=== PATIENT | female | born 1970 | race Caucasian/White ===

== ENCOUNTER 2020-09-10 14:23 | Outpatient (RCR) | payer MEDICARE, SELFPAY ==
[2020-09-10] MEDS: COVID-19 VACC, MRNA(PFIZER)/PF 30 MCG/0.3 ML SYRINGE IM (13:48)
[2020-10-01] MEDS: COVID-19 VACC, MRNA(PFIZER)/PF 30 MCG/0.3 ML SYRINGE IM (07:01)
== END 2020-09-10 23:59 ==
LOC: IMMUN 14:23
PROVIDERS: Visit Provider Family Medicine
DX: Z23 Encounter for immunization (principal)
CPT/HCPCS: 0001A; 0002A; 91300

== ENCOUNTER → 2021-05-19 09:49 | Outpatient (CLI) | payer OTHER, SELFPAY ==
[2021-05-19 12:20] LABS: Absolute Lymphocyte Count 1.99 X10^3/uL (0.83-4.51); Absolute Neutrophil Count 3.9 X10^3/uL (2.0-7.7); Basophil# 0.05 X10^3/uL; Basophil% 0.7 % (0-1); Eosinophil# 0.37 X10^3/uL; Eosinophils% 5.5 % (0-5); Hematocrit 41.6 % (37-47); Hemoglobin 13.6 g/dL (12.0-15.0); Lymphocyte # 1.99 X10^3/ul (0.83-4.51); Lymphocyte % 29.4 % (19-41); Mean Corp Hgb Conc 32.7 g/dL (32-36); Mean Corpuscular Hgb 29.1 pg (27.0-32.0); Mean Corpuscular Volume 89.1 fL (81-99); Mean Platelet Vol. 11.3 fl (6.2-12.0); Monocyte# 0.42 X10^3/uL; Monocyte% 6.2 % (0-10); NRBC Flagged by Analyzer 0 % (0-5); Neutrophil # 3.89 X10^3/uL (2.7-7.7); Neutrophil % 57.6 % (47-70); Platelet Count 386 K/mm3 (150-450); RBC Distribution Width CV 13.2 % (11.6-14.6); RBC Distribution Width SD 42.9 fl (35.1-43.9); Red Blood Count 4.67 M/mm3 (4.2-5.4); White Blood Count 6.8 K/mm3 (4.4-11.0)
[2021-05-19 12:46] LABS: ALB/GLOB Ratio 0.8 RATIO (0.9-2.4); AST(SGOT) 19 U/L (15-37); Alanine Aminotransfer ALT/SGPT 33 U/L (13-56); Albumin, Serum 3.6 g/dL (3.2-5.0); Alkaline Phosphatase 104 U/L (45-117); Anion Gap 10 (5-15); BUN 18 mg/dL (7-18); BUN/Creat Ratio 23.8 RATIO (10-20); Calcium,Total 8.9 mg/dL (8.5-10.1); Chloride 103 mmol/L (98-107); Cholesterol 252 mg/dL (200); Creatinine, Serum 0.76 mg/dL (0.55-1.02); EST Glomerular Filtration Rate 86 mL/min (>60); Est Glom Filt Rate - Afr Amer 104 mL/min (>60); Globulin 4.6 g/dL (2.2-4.2); Glucose 84 mg/dL (74-106); High Density Lipoprotein 47 mg/dL; Potassium 3.8 mmol/L (3.5-5.1); Protein, Total 8.2 g/dL (6.4-8.2); Sodium Level 138 mmol/L (136-145); T4 Free Direct 0.95 ng/dL (0.76-1.46); Thyroid Stim Hormone (TSH) 7.88 uIU/mL (0.358-3.74); Triglycerides 149 mg/dL; Very Low Density Lipoprotein 30 mg/dL (5-40)
[2021-05-19 12:57] LABS: Vitamin B12 517 pg/mL (211-911); Vitamin D,25 Hydroxy 21.2 ng/mL
[2021-05-29 03:07] LABS: Thyroid Stim Immunoglob <0.10 IU/L (0.00-0.55)
[2021-05-29 14:22] LABS: Anti-Thyroglobulin AB 2.3 IU/mL (0.0-0.9); Thyroglobulin RIA 17 ng/mL (.); Thyroid Peroxidase AB 286 IU/mL (0-34)
== END ==
PROVIDERS: PCP Family Medicine; Referring Provider Family Medicine; Visit Provider Family Medicine
DX: E78.5 Hyperlipidemia, unspecified (principal); E01.0 Iodine-deficiency related diffuse (endemic) goiter; E55.9 Vitamin D deficiency, unspecified; R53.83 Other fatigue
CPT/HCPCS: 36415; 80053; 80061; 82306; 82607; 84432; 84439; 84443; 84445; 85025; 86376; 86800

== ENCOUNTER 2021-08-27 10:10 | Outpatient (CLI) | payer BC, SELFPAY ==
[2021-08-27 11:10] LABS: Vitamin D,25 Hydroxy 43.8 ng/mL
[2021-08-27 11:18] LABS: T4 Free Direct 1.05 ng/dL (0.76-1.46); Thyroid Stim Hormone (TSH) 2.86 uIU/mL (0.358-3.74)
== END 2021-08-27 23:59 | disposition home or self-care (01) ==
LOC: MFPLAB 10:11
PROVIDERS: PCP Family Medicine; Visit Provider Family Medicine
DX: E06.3 Autoimmune thyroiditis (principal); E55.9 Vitamin D deficiency, unspecified
CPT/HCPCS: 36415; 82306; 84439; 84443

== ENCOUNTER → 2024-12-30 | Outpatient (CLI) | payer OTHER, SELFPAY ==
[2024-12-30 17:59] LABS: Vitamin D,25 Hydroxy 44.1 ng/mL (30-100)
[2024-12-31 07:43] LABS: T3 Total - Triiodothyronine 1.16 ng/mL (0.80-2.00)
== END | disposition home or self-care (01) ==
LOC: LAB.FUTURE 15:35 → LAB 15:39
PROVIDERS: PCP Family Medicine; Referring Provider Internal Medicine Endocrinology, Diabetes & Metabolism; Visit Provider Internal Medicine Endocrinology, Diabetes & Metabolism
DX: E06.3 Autoimmune thyroiditis (principal); E55.9 Vitamin D deficiency, unspecified
CPT/HCPCS: 36415; 82306; 84439; 84443; 84480

== ENCOUNTER → 2025-01-23 | Outpatient (CLI) | payer OTHER, SELFPAY ==
[2025-01-23 13:19] LABS: Follicle Stimulating Hormone 68.9 mIU/mL
== END | disposition home or self-care (01) ==
LOC: BWCLAB 11:50
PROVIDERS: PCP Family Medicine; Visit Provider Nurse Practitioner Family
DX: N95.0 Postmenopausal bleeding (principal)
CPT/HCPCS: 36415; 82670; 83001

== ENCOUNTER → 2025-02-03 | Outpatient (CLI) | payer OTHER, SELFPAY ==
--- NOTE | 2025-02-03 15:25 | US_ITS ---
PROCEDURE: PELVIC W/ TRANSVAGINAL REASON FOR EXAM: POST MENOPAUSAL BLEEDING TECHNIQUE: PELVIC W/ TRANSVAGINAL COMPARISON: None FINDINGS: Measurements: Uterus: 7.3 cm x 4.5 cm x 3.7 cm with a volume of 63.02 mL Endometrial Thickness: 5.8 mm. Endometrium is thickened. Right Ovary: 2 cm x 1.5 cm x 1.1 cm with a volume of 1.77 mL. Left Ovary: 1.1 cm x 1.4 cm x 0.8 cm with a volume of 0.62 mL. TRANSABDOMINAL: Uterus: Normal size, myometrial echotexture, and contour. Endometrium: Endometrium is thickened measuring 5.8 mm. Right ovary: Normal size and echotexture. Left ovary: Normal size and echotexture. Other: No large pelvic mass identified. Transvaginal sonography was performed to better visualize the endometrium. TRANSVAGINAL: Uterus: Retroverted. Endometrium: Endometrial thickening. Right ovary: Normal size and echotexture. Left ovary: Normal size and echotexture. Other adnexal findings: None. Cul-de-sac: No free intraperitoneal fluid identified. Tenderness: No tenderness US/Pelvic w/ Transvaginal IMPRESSION: Endometrial thickening for the postmenopausal state. Reading Location: [place] [id number]
--- NOTE | 2025-02-03 15:25 | US_ITS ---
PROCEDURE: PELVIC W/ TRANSVAGINAL REASON FOR EXAM: POST MENOPAUSAL BLEEDING TECHNIQUE: PELVIC W/ TRANSVAGINAL COMPARISON: None FINDINGS: Measurements: Uterus: 7.3 cm x 4.5 cm x 3.7 cm with a volume of 63.02 mL Endometrial Thickness: 5.8 mm. Endometrium is thickened. Right Ovary: 2 cm x 1.5 cm x 1.1 cm with a volume of 1.77 mL. Left Ovary: 1.1 cm x 1.4 cm x 0.8 cm with a volume of 0.62 mL. TRANSABDOMINAL: Uterus: Normal size, myometrial echotexture, and contour. Endometrium: Endometrium is thickened measuring 5.8 mm. Right ovary: Normal size and echotexture. Left ovary: Normal size and echotexture. Other: No large pelvic mass identified. Transvaginal sonography was performed to better visualize the endometrium. TRANSVAGINAL: Uterus: Retroverted. Endometrium: Endometrial thickening. Right ovary: Normal size and echotexture. Left ovary: Normal size and echotexture. Other adnexal findings: None. Cul-de-sac: No free intraperitoneal fluid identified. Tenderness: No tenderness US/Pelvic w/ Transvaginal IMPRESSION: Endometrial thickening for the postmenopausal state. Reading Location: [place] [id number]
== END | disposition home or self-care (01) ==
LOC: US 15:18
PROVIDERS: PCP Internal Medicine; Referring Provider Nurse Practitioner Family; Visit Provider Nurse Practitioner Family
DX: N95.0 Postmenopausal bleeding (principal)
CPT/HCPCS: 76830; 76856

== ENCOUNTER → 2025-02-27 | Outpatient (CLI) | payer OTHER, SELFPAY ==
--- NOTE | 2025-02-27 15:45 | EMB_PTH ---
PATIENT: JEREMIAS MARKS LOC: [facility] U#:[id number] AGE/SX: 54/F ROOM: RE02/27/[address]: Dr. Ruthann Augustin DO : 1970 BED: DIS: 02/27/2025 SPEC #: [id number] RECD: 02/27/25 16:38 STATUS: DANG OLEA #: [id number] GÓMEZ: 02/27/25 15:[address]: Ruthann Augustin DEPT: SURGICAL PATHOLOGY RECD BY: Darron Mata ENTERED: 02/28/25 11:31 SP TYPE: ENDOM BX/C DAMIAN DR: Dr. Yolanda Madrid MD Tissues: A - Endometrium, NOS Procedures: Surgery Specimen Level IV HEADER OPERATION: Endometrial biopsy PRE-OP DIAGNOSIS: Post menopausal bleeding TISSUE SUBMITTED: A- Endometrial lining MICROSCOPIC DIAGNOSIS A. Endometrium, biopsy: - Scant superficial endometrium - see note. Note: Scant tissue is present for evaluation. Clinical correlation is necessary to assess the adequacy of this sampling. MICROSCOPIC DESCRIPTION Slides are reviewed. GROSS DESCRIPTION A. Received in formalin labeled with the patient's name and date of are scant flecks of tissue floating within the container which are entirely submitted in 1 cassette for cellblock preparation. ID 02/28/2025 CPT:[id number]
== END | disposition home or self-care (01) ==
LOC: LABSPEC 16:29
PROVIDERS: PCP Internal Medicine; Visit Provider Obstetrics & Gynecology
DX: N95.0 Postmenopausal bleeding (principal)
CPT/HCPCS: 88305

== ENCOUNTER → 2025-04-18 | Outpatient (CLI) | payer OTHER, SELFPAY ==
[2025-04-18 07:24] LABS: Hematocrit 39.6 % (37-47); Hemoglobin 13.2 g/dL (12.0-15.0); Mean Corp Hgb Conc 33.3 g/dL (32-36); Mean Corpuscular Volume 87.8 fL (81-99); Mean Platelet Vol. 11.1 fl (6.2-12.0); Platelet Count 373 K/mm3 (150-450); RBC Distribution Width CV 13.1 % (11.6-14.6); RBC Distribution Width SD 42.2 fl (35.1-43.9); Red Blood Count 4.51 M/mm3 (4.2-5.4); White Blood Count 6.9 K/mm3 (4.4-11.0)
[2025-04-18 08:01] LABS: AST(SGOT) 23 U/L (<=31); Alanine Aminotransfer ALT/SGPT 26 U/L (<=34); Albumin, Serum 4.2 g/dL (3.5-5.0); Alkaline Phosphatase 81 U/L (35-104); Anion Gap 10 (5-15); BUN 12 mg/dL (4-19); BUN/Creat Ratio 17.3 RATIO (10-20); Calcium,Total 9.3 mg/dL (7.6-11.0); Carbon Dioxide 26.6 mmol/L (21.0-32.0); Chloride 104 mmol/L (98-108); Globulin 3.4 g/dL (2.2-4.2); Glucose 99 mg/dL (70-99); Magnesium 2.4 mg/dL (1.5-2.2); Potassium 4.0 mmol/L (3.3-5.1); Vitamin B12 369 pg/mL (180-914)
[2025-04-21 12:09] LABS: Vitamin D 1,25-Dihydroxy 48.1 pg/mL (24.8-81.5)
[2025-04-24 23:07] LABS: Folate, Hemolysate Test 372.0 ng/mL (Not Estab.); Folate, RBC (Hct) Test 40.0 % (34.0-46.6); Folates, RBC Test 930 ng/mL (>498); VITAMIN B6 11.6 ug/L (3.4-65.2); Vitamin B1, Thiamine 117.1 nmol/L (66.5-200.0)
== END | disposition home or self-care (01) ==
PROVIDERS: Referring Provider Psychiatry & Neurology Neurology; Visit Provider Psychiatry & Neurology Neurology
DX: G35.A Relapsing-remitting multiple sclerosis (principal)
CPT/HCPCS: 36415; 80053; 82607; 82652; 82747; 83735; 84207; 84425; 84443; 85014; 85027

== ENCOUNTER → 2025-04-22 | Outpatient (CLI) | payer OTHER, SELFPAY ==
--- NOTE | 2025-04-22 14:58 | MRI_ITS ---
PROCEDURE: BRAIN W/WO CONTRAST 04/22/2025 REASON FOR EXAM: MULTIPLE SCLEROSIS TECHNIQUE: Procedure Code: MRIBRWW Modality: MR Procedure: BRAIN W/WO CONTRAST Multiplanar and multisequence images were obtained. CONTRAST: Clariscan VOLUME: 17 mL COMPARISON: none FINDINGS: No intracerebral or extra-axial acute hemorrhage. No enhancing masses. No hyperacute or acute infarctions could be depicted. Bilateral cerebral predominantly subcortical and to less extent periventricular foci of isointense T1 and high T2/FLAIR signal. No post contrast enhancement, perifocal edema or mass effect. Normal appearance of the corpus callosum. Normal MRI appearance of the cerebellum and brain stem. Normal appearance of the ventricular system. Prominent fronto-parietal extra-axial CSF spaces. No midline shift. Normal MRI appearance of the petrous temporal bones and cerebellopontine angles with no obvious masses. No shift of midline structures. Normal MRI appearance of orbital structures, both globes, optic nerves, optic chiasm, optic tracts and optic radiations. Empty sella is noted. Scanned paranasal sinuses are unremarkable. MRI/Brain W/WO Contrast IMPRESSION: Bilateral cerebral foci of altered signal as described. Advise clinical and kai or studies correlation. No acute infarcts, intracerebral or extra-axial hematomas or enhancing masses. Reading [facility]
== END | disposition home or self-care (01) ==
LOC: MRI 14:34
PROVIDERS: Referring Provider Psychiatry & Neurology Neurology; Visit Provider Psychiatry & Neurology Neurology
DX: G35.A Relapsing-remitting multiple sclerosis (principal); R42 Dizziness and giddiness
CPT/HCPCS: 70553; A9575

== ENCOUNTER → 2025-06-17 | Outpatient (CLI) | payer OTHER, SELFPAY | END | disposition home or self-care (01) | LOC: SL 15:08 | PROVIDERS: PCP Internal Medicine; Referring Provider Nurse Practitioner Acute Care; Visit Provider Nurse Practitioner Acute Care | DX: G47.33 Obstructive sleep apnea (adult) (pediatric) (principal); G47.10 Hypersomnia, unspecified | CPT/HCPCS: 95806 ==